=== PATIENT | male | born 1995 | race Caucasian/White ===

== ENCOUNTER 2017-11-30 07:28 | Emergency (ER) | payer OTHER ==
[~2017-11-30] VITALS: Ht 175.3 cm; Wt 65.8 kg
[2017-11-30 07:44] VITALS: BP 132/96
[2017-11-30 07:48] VITALS: BP 117/91
--- NOTE | 2017-11-30 08:07 | Emergency Room Report ---
History of Present Illness General Chief Complaint: Alcohol Intoxication Source: Patient Present Illness HPI 22-year-old male presents ED for evaluation. Patient brought in by EMS. Per EMS patient was drinking all night. Bystanders called 911 because patient was walking. Patient states he was drinking all night but states he feels fine. States he was going to his friend's house. Denies any drug use. Denies any abdominal pain nausea or vomiting. Denies falling and hitting his head. No other aggravating relieving factors. Denies any other associated symptoms Allergies: Coded Allergies: No Known Allergies (Unverified , 11/30/17) Patient History Past Medical History: none Past Surgical History: none Pertinent Family History: none Social History: Denies: smoking, alcohol use, drug use Immunizations: UTD Reviewed Nursing Documentation: PMH: Agreed; PSxH: Agreed Nursing Documentation-PMH Past Medical History: No Stated History Review of Systems All Other Systems: negative except mentioned in HPI Physical Exam Vital Signs Date Time Temp Pulse Resp B/P (MAP) Pulse Ox O2 Delivery O2 Flow Rate FiO2 11/30/17 07:24 97.6 98 18 132/96 100 Room Air 97.5 Sp02 EP Interpretation: reviewed, normal General Appearance: no apparent distress, alert, GCS 15, non-toxic Head: normocephalic, atraumatic Eyes: bilateral eye normal inspection, bilateral eye PERRL ENT: hearing grossly normal, normal pharynx, no angioedema, normal voice Neck: full range of motion, supple/symm/no masses Respiratory: chest non-tender, lungs clear, normal breath sounds, speaking full sentences Cardiovascular #1: regular rate, rhythm, no edema Cardiovascular #2: 2+ carotid (R), 2+ carotid (L), 2+ radial (R), 2+ radial (L) , 2+ dorsalis pedis (R), 2+ dorsalis pedis (L) Gastrointestinal: normal bowel sounds, non tender, soft, non-distended, no guarding, no rebound Rectal: deferred Genitourinary: normal inspection, no CVA tenderness Musculoskeletal: back normal, gait/station normal, normal range of motion, non- tender Neurologic: alert, oriented x3, responsive, motor strength/tone normal, sensory intact, speech normal Psychiatric: judgement/insight normal, memory normal, mood/affect normal, no suicidal/homicidal ideation Reflexes: 3+ bicep (R), 3+ bicep (L), 3+ tricep (R), 3+ tricep (L), 3+ knee (R) , 3+ knee (L) Skin: normal color, no rash, warm/dry, well hydrated Lymphatic: no adenopathy Medical Decision Making Diagnostic Impression: Primary Impression: Acute alcoholic intoxication Qualified Codes: F10.929 - Alcohol use, unspecified with intoxication, unspecified ER Course Hospital Course 22-year-old male presents to ED status post EtOH intoxication. Clinical course Patient placed on stretcher. Given that patient is able to provide an adequate history, I see no need to check blood work or place an IV. My assessment shows no evidence of SI/HI requiring psychiatric evaluation. Patient called friend to pick him up. Patient walking in ED with steady gait. Patient safe for discharge Diagnosis - ETOH intoxication stable and discharged to home. Followup with PMD. Return to ED if symptoms recur or worsen Last Vital Signs Date Time Temp Pulse Resp B/P (MAP) Pulse Ox O2 Delivery O2 Flow Rate FiO2 11/30/17 07:48 97.5 92 18 117/91 100 Room Air 97.5 Status: improved Disposition: HOME, SELF-CARE Condition: Stable Scripts No Active Prescriptions or Reported Meds Referrals: NOT APPLICABLE THIS PATIENT,RE (PCP) Patient Instructions: Alcohol Intoxication Fred Perla MD Nov 30, 2017 08:07
[2017-11-30 08:13] VITALS: BP 117/91
== END 2017-11-30 08:10 | disposition home or self-care (01) ==
LOC: EDBD 07:28 → EMR 07:59
DX: F10.929 Alcohol use, unspecified with intoxication, unspecified (principal)
CPT/HCPCS: 99284